=== PATIENT | male | born 1995 | race Caucasian/White ===

== ENCOUNTER 2021-08-03 22:04 | Emergency (ER) | payer BC, OTHER ==
[~2021-08-03] VITALS: Ht 182.9 cm; Wt 95.3 kg
[2021-08-04] MEDS ORDERED: MORPHINE SULFATE 4 MG/ML SYR/VIAL IM ONE (01:15)
[2021-08-04] MEDS ORDERED: FLUORESCEIN SOD OPTH TEST STRIP LEFTEYE ONE (01:30)
[2021-08-04] MEDS ORDERED: TETRACAINE HCL 0.5% OPTH(EYE) SOLN 4ML LEFTEYE ONE (01:30)
[2021-08-04] MEDS ORDERED: ONDANSETRON ODT 4 MG TAB PO ONE (02:15)
[2021-08-04] MEDS ORDERED: ATROPINE SULFATE 1% 2ml LEFTEYE ONE (03:15)
[2021-08-04 04:23] VITALS: BP 114/60
== END 2021-08-04 04:40 | disposition short-term general hospital (02) ==
LOC: ER 22:08
DX: S05.12XA Contusion of eyeball and orbital tissues, left eye, initial encounter (principal); X19.XXXA Contact with other heat and hot substances, initial encounter; Y93.89 Activity, other specified; Y92.89 Other specified places as the place of occurrence of the external cause; Y99.8 Other external cause status
CPT/HCPCS: 70480; 96372; 99285; J2270; Q0162